=== PATIENT | male | born 1985 | race Caucasian/White ===

== ENCOUNTER 2016-11-17 19:14 | Emergency (ER) | payer MEDICAID ==
[~2016-11-17] VITALS: Ht 190.5 cm; Wt 86.2 kg
[2016-11-17 19:27] VITALS: BP 139/100
--- NOTE | 2016-11-17 23:02 | NUR ---
Patient to bed 03.
--- NOTE | 2016-11-17 23:04 | NUR ---
Dr. Cabezas evaluating patient at bedside.
--- NOTE | 2016-11-17 23:05 | NUR ---
31Y/M PATIENT PRESENTS TO ED WITH LT. LEG ABSCESS X 4 DAYS. PT STATES LT. LEG STARTED SWELLING AND REDNESS X 4 DAYS, NO FEVER.; SKIN IS PINK/WARM/DRY, LT. LEG SWELLING, REDNESS; AAOX4 WITH EVEN AND STEADY GAIT; LUNGS CLEAR BL; HR EVEN AND REGULAR; PT DENIES ANY FEVER, CP, SOB, OR COUGH AT THIS TIME; PATIENT STATES PAIN OF 6/10 AT THIS TIME; VSS; PATIENT POSITIONED FOR COMFORT; HOB ELEVATED; BEDRAILS UP X2; BED DOWN. ER MD MADE AWARE OF PT STATUS.
[2016-11-17] MEDS ORDERED: CLINDAMYCIN 150 MG CAP PO ONE (23:10)
[2016-11-17] MEDS ORDERED: HYDROcodone/APAP 10/325 MG 1 TAB TAB PO ONE (23:10)
[2016-11-17] MEDS ORDERED: LIDOCAINE 1% 500 MG/50 ML VIAL INJ ONE (23:10)
--- NOTE | 2016-11-18 00:05 | NUR ---
Patient discharged with v/s stable. Written and verbal after care instructions given and explained. Patient alert, oriented and verbalized understanding of instructions. Ambulatory with steady gait. All questions addressed prior to discharge. ID band removed. Patient advised to follow up with PMD. Rx of NORCO 5*325 MG, CLINDAMYCIN 300 MG given. Patient educated on indication of medication including possible reaction and side effects. Opportunity to ask questions provided and answered.
[2016-11-18 00:12] VITALS: BP 131/85
== END 2016-11-18 00:15 | disposition home or self-care (01) ==
LOC: MED 19:14
DX: L02.416 Cutaneous abscess of left lower limb (principal); R03.0 Elevated blood-pressure reading, without diagnosis of hypertension
CPT/HCPCS: 10060; 99283; J2001

== ENCOUNTER 2023-12-23 00:25 | Emergency (ER) | payer MEDICAID ==
[~2023-12-23] VITALS: Ht 188 cm; Wt 90.7 kg
[2023-12-23 00:39] VITALS: BP 143/85; PULSE 78; RESP 18; TEMP 98.1; O2SAT 97
[2023-12-23] MEDS ORDERED: CEPH-588 PO (02:11)
[2023-12-23 02:20] VITALS: BP 120/81; PULSE 78; RESP 18; TEMP 98.1; O2SAT 98
== END 2023-12-23 02:20 | disposition home or self-care (01) ==
LOC: MED 00:25
DX: L03.116 Cellulitis of left lower limb (principal); Z79.899 Other long term (current) drug therapy
CPT/HCPCS: 99284